=== PATIENT | male | born 1955 | race Two or more races ===

== ENCOUNTER 2019-07-11 19:23 | Inpatient (IN) | payer OTHER ==
[~2019-07-11] VITALS: Ht 180.3 cm; Wt 99.1 kg
[2019-07-11 20:44] LABS: Urine Bacteria NONE SEEN /hpf (None Seen); Urine Blood TRACE /uL (Negative); Urine Mucus FEW (None Seen); Urine Specific Gravity 1.029 (1.001-1.035); Urine WBC 4 /hpf (0 - 3)
[2019-07-11 21:56] LABS: Basophils # (auto) 0.1 uL; Basophils % (auto) 0.5 % (0.0-2.0); Eosinophils # (auto) 0 uL; Eosinophils % (auto) 0.4 % (0.0-7.0); Hematocrit 40.3 % (41.0-53.0); Hemoglobin 14.3 g/dL (13.5-17.5); Lymphocytes # (auto) 0.9 uL; Lymphocytes % (auto) 9.5 % (10.0-50.0); Mean Corpuscular Hemoglobin 32.1 pg (28.0-32.0); Mean Corpuscular Hgb Conc. 35.4 g/dL (32.0-36.0); Mean Corpuscular Volume 90.5 fL (80.0-100.0); Monocytes # (auto) 1.3 uL; Monocytes % (auto) 13.8 % (0.0-12.0); Neutrophils # (auto) 7.3 uL; Neutrophils % (auto) 75.8 % (37.0-80.0); Platelet Count (auto) 213 10^3/uL (140-450); Red Blood Cells 4.46 10^6/uL (4.5-5.90); Red Cell Distribution Width 12.5 % (11.8-14.3); White Blood Cell 9.6 10^3/uL (4.4-10.8)
[2019-07-11 22:16] LABS: Albumin 3.6 g/dL (3.4-5.0); Calcium 9.3 mg/dL (8.5-10.1); Potassium 4.1 mmol/L (3.5-5.1)
[2019-07-11 22:20] LABS: Bilirubin, Total 1.5 mg/dL (0.2-1.0); Total Protein 7.7 g/dL (6.4-8.2)
[2019-07-11] MEDS ORDERED: cefTRIAXone 1GM/50ML D5W 50 ML IV ONE (23:15)
[2019-07-11] MEDS ORDERED: SODIUM CHLORIDE 0.9% 1,000 ML IV ONE (23:15)
[2019-07-11] MEDS ORDERED: metroNIDAZOLE 500MG/100ML 100 ML IV ONE (23:15)
[2019-07-12] MEDS ORDERED: ONDANSETRON HCL 4 MG/2 ML VIAL IV PRN ×2 (00:15→13:30)
[2019-07-12] MEDS: SODIUM CHLORIDE 0.9% 1,000 ML IV SCH ×2 (00:34→09:28)
[2019-07-12 00:50] LABS: INR 1.13 (0.9-1.15); Partial Thromboplastin Time 31.9 sec (23.64-32.05)
--- NOTE | 2019-07-12 01:20 | NUR ---
PT AAOX4, AFEBRILE. NO SOB OR DISTRESS. NO CURRENT C/O PAIN, STATES PAIN IS TOLERABLE 2/10 ON RLQ ABD. PT EDUCATED ON NPO DIET CURRENTLY, PT STATED UNDERSTANDING. SAFETY PRECAUTIONS IN PLACE. WILL CONTINUE TO MONITOR.
[2019-07-12 05:00] VITALS: BP 119/59
[2019-07-12] MEDS: metroNIDAZOLE 500MG/100ML 100 ML IV SCH ×3 (05:22→21:23)
--- NOTE | 2019-07-12 06:05 | NUR ---
PT AROUSABLE BY NAME. NO C/O PAIN AT THIS TIME, STATES PAIN IS FELT WHILE MOVING. POC DISCUSSED, PT STATED UNDERSTANDING, SAFETY PRECAUTIONS IN PLACE. WILL CONTINUE TO MONITOR.
--- NOTE | 2019-07-12 08:10 | NUR ---
Patient is ambulatory to the bathroom.
[2019-07-12] MEDS: cefTRIAXone 1GM/50ML D5W 50 ML IV SCH (08:17)
--- NOTE | 2019-07-12 08:19 | NUR ---
Patient stated he does not take routine medications at home.
[2019-07-12 09:00] VITALS: BP 115/62
[2019-07-12] MEDS: PANTOPRAZOLE 40 MG/10 ML VIAL INJ IV SCH (09:26)
--- NOTE | 2019-07-12 11:04 | NUR ---
Informed Dr. Hernandez the US Abdomen (right upper quadrant) results. Waiting for MD to call back.
--- NOTE | 2019-07-12 11:08 | NUR ---
Dr. Hernandez ordered to keep patient NPO, let the patient sign the consents for laparoscopic possibly open appendectomy, he will do the procedure in an hour. Keep patient NPO.
[2019-07-12 11:46] LABS: Basophils # (auto) 0 uL; Basophils % (auto) 0.4 % (0.0-2.0); Eosinophils # (auto) 0.1 uL; Eosinophils % (auto) 0.8 % (0.0-7.0); Hematocrit 36.4 % (41.0-53.0); Hemoglobin 12.9 g/dL (13.5-17.5); Lymphocytes # (auto) 0.8 uL; Lymphocytes % (auto) 10.1 % (10.0-50.0); Mean Corpuscular Hemoglobin 31.9 pg (28.0-32.0); Mean Corpuscular Hgb Conc. 35.3 g/dL (32.0-36.0); Mean Corpuscular Volume 90.3 fL (80.0-100.0); Monocytes % (auto) 12.9 % (0.0-12.0); Neutrophils # (auto) 6.1 uL; Neutrophils % (auto) 75.8 % (37.0-80.0); Platelet Count (auto) 180 10^3/uL (140-450); Red Blood Cells 4.03 10^6/uL (4.5-5.90); Red Cell Distribution Width 12.5 % (11.8-14.3)
--- NOTE | 2019-07-12 11:50 | NUR ---
Transferred patient via bed to OR/Surgery for Laparoscopic possibly open appendectomy as ordered by Dr. Hernandez. IV line on the right AC intact and patent. Endorsed patient to [employer].
[2019-07-12 12:05] LABS: INR 1.19 (0.9-1.15); Partial Thromboplastin Time 33.5 sec (23.64-32.05)
[2019-07-12 12:11] LABS: Calcium 8.1 mg/dL (8.5-10.1); Potassium 3.8 mmol/L (3.5-5.1)
[2019-07-12 12:14] LABS: BUN/Creatinine Ratio 20.2; Bilirubin, Total 1.2 mg/dL (0.2-1.0); Total Protein 6.7 g/dL (6.4-8.2)
[2019-07-12] MEDS ORDERED: SUCCINYLCHOLINE CHLORIDE 20 MG/ML 10ML VIAL IV ONE (12:42)
[2019-07-12] MEDS ORDERED: MIDAZOLAM HCL 1MG/1ML-2 ML VIAL ONE (13:05)
[2019-07-12] MEDS ORDERED: ROCURONIUM 10MG/ML 10ML VIAL IV ONE (13:05)
[2019-07-12] MEDS ORDERED: LIDOCAINE 1% (LOCAL ANESTH.) PF 5ml SDV ONE (13:07)
[2019-07-12] MEDS ORDERED: PROPOFOL 10 MG/ML 20 ML IV ONE (13:07)
[2019-07-12] MEDS ORDERED: METOCLOPRAMIDE HCL 5MG/ml INJ 2ml VIAL ONE (13:11)
[2019-07-12] MEDS ORDERED: fentaNYL CITRATE 100 MCG/2 ML VL ONE (13:30)
[2019-07-12] MEDS ORDERED: HYDROmorphone HCL 2 MG/ML VL IV PRN ×2 (13:30)
[2019-07-12] MEDS ORDERED: NALOXONE HCL 0.4 MG/ML VIAL IV PRN (13:30)
[2019-07-12] MEDS ORDERED: ePHEDrine SULFATE 50 MG/ML AMP ONE (14:01)
[2019-07-12] MEDS ORDERED: SODIUM CHLORIDE LOCK 10 ML ONE (14:01)
[2019-07-12] MEDS ORDERED: KETOROLAC TROMETH 30 MG/ML 1ML VIAL ONE (14:19)
[2019-07-12] MEDS ORDERED: NEOSTIGMINE 1 MG/ML INJ (10mg/10ML VIAL) ONE (14:25)
[2019-07-12] MEDS ORDERED: GLYCOPYRROLATE 0.2 MG/ML 1ML VIAL ONE (14:25)
[2019-07-12] MEDS ORDERED: POVIDONE IODINE 10 % TOPICAL OINT 30GM TOP ONE (14:25)
--- NOTE | 2019-07-12 15:20 | NUR ---
Keep patient NPO as per OR/Surgery.
--- NOTE | 2019-07-12 15:20 | NUR ---
Patient back to room post op open laparoscopic appendectomy. Patient awake, mildly lethargic. Medial abdomen with surgical dressing with one JENNIFER Bulb draining small amount of serosanguineous fluid. Coughing noted. Will provide Incentive Spirometer. Will hook the SCDs on lower extremities to SCD machine.
--- NOTE | 2019-07-12 15:40 | NUR ---
Lower extremities on SCDs hooked on SCD machine.
--- NOTE | 2019-07-12 15:45 | NUR ---
Zofran Inj given for nausea, Morphine Sulf Inj 2 mg given for stomach pain (post op Lap Appendectomy).
[2019-07-12] MEDS: MORPHINE SULFATE 4 MG/ML SYR/VIAL IV PRN (15:46)
[2019-07-12 17:00] VITALS: BP 119/60
--- NOTE | 2019-07-12 20:00 | NUR ---
Opening Shift Note Assumed care of patient, awake and alert. No S/S of distress/SOB or pain. Instructed on POC and to call for assist PRN, will continue to monitor for changes Q1hr and PRN.Dressing in the abdomen dry and intact,wearing abdominal binder.
[2019-07-12 21:42] VITALS: BP 141/71
--- NOTE | 2019-07-13 00:50 | NUR ---
Called Marie Andre for patient cant urinate enough only 10cc noted in the urinal as patient verbalized having difficulty urinating, relayed s/p lap. open appendectomy, with order to do blader scan if urine is above 200 cc, to insert Gerber cath.,bladder scan done with 366 urine .So tried to insert regular Gerber cath.size 16, but no urine back flow.
[2019-07-13] MEDS: MORPHINE SULFATE 4 MG/ML SYR/VIAL IV PRN ×4 (01:55→21:48)
--- NOTE | 2019-07-13 02:10 | NUR ---
Clarified to Adam Paulino to use coude catheter, and said its davie.
--- NOTE | 2019-07-13 02:20 | NUR ---
Coude Gerber inserted and 900cc urine output drained in the urine bag.
[2019-07-13 05:01] VITALS: BP 130/70
[2019-07-13] MEDS: metroNIDAZOLE 500MG/100ML 100 ML IV SCH ×3 (05:27→21:48)
[2019-07-13] MEDS: SODIUM CHLORIDE 0.9% 1,000 ML IV SCH (06:13)
--- NOTE | 2019-07-13 06:31 | NUR ---
J.p bulb output is 25cc serous sanguinous.
[2019-07-13 06:53] LABS: Basophils # (auto) 0 uL; Basophils % (auto) 0.3 % (0.0-2.0); Eosinophils # (auto) 0 uL; Hemoglobin 12.6 g/dL (13.5-17.5); Lymphocytes # (auto) 0.8 uL; Lymphocytes % (auto) 10.6 % (10.0-50.0); Mean Corpuscular Hemoglobin 31.9 pg (28.0-32.0); Mean Corpuscular Hgb Conc. 35.1 g/dL (32.0-36.0); Mean Corpuscular Volume 90.9 fL (80.0-100.0); Monocytes # (auto) 0.9 uL; Monocytes % (auto) 13.1 % (0.0-12.0); Neutrophils # (auto) 5.4 uL; Platelet Count (auto) 175 10^3/uL (140-450); Red Blood Cells 3.96 10^6/uL (4.5-5.90); Red Cell Distribution Width 12.5 % (11.8-14.3); White Blood Cell 7.1 10^3/uL (4.4-10.8)
--- NOTE | 2019-07-13 07:14 | NUR ---
Care report given to Porfirio Carrillo, patient is resting no distress.
--- NOTE | 2019-07-13 07:30 | NUR ---
Opening Shift Note Assumed care of patient, awake and alert. No S/S of distress/SOB, reports abdominal pain. Instructed on POC and to call for assist PRN, will continue to monitor for changes Q1hr and PRN.
[2019-07-13 09:00] VITALS: BP 130/69
[2019-07-13] MEDS: PANTOPRAZOLE 40 MG/10 ML VIAL INJ IV SCH (10:47)
[2019-07-13] MEDS: D5W/ SOD CHL 0.9%/KCL 20MEQ 1,000 ML IV SCH ×2 (10:47→18:45)
[2019-07-13] MEDS: cefTRIAXone 1GM/50ML D5W 50 ML IV SCH (10:47)
[2019-07-13 17:00] VITALS: BP 130/72
--- NOTE | 2019-07-13 19:20 | NUR ---
Opening Shift Note Report received from day shift RN. Assumed care of patient, awake and A&O x4. No S/S of distress/SOB noted. Patient complains of abdominal pain 12/06. Will medicate as ordered. Dressing to the abdomen C/D/I. JENNIFER drain in place freely draining to suction. Gerber in place, draining to gravity and free of obstructions. Patient is wearing an abdominal binder at this time. Instructed on POC and to call for assist PRN, will continue to monitor for changes Q1hr and PRN.
[2019-07-13 21:16] VITALS: BP 146/79
[2019-07-14] MEDS: D5W/ SOD CHL 0.9%/KCL 20MEQ 1,000 ML IV SCH (04:45)
[2019-07-14 05:02] VITALS: BP 141/78
--- NOTE | 2019-07-14 05:30 | NUR ---
JENNIFER DRAIN 50 ML OF SEROSANGUINEOUS FLUID REMOVED FROM JENNIFER DRAIN
[2019-07-14] MEDS: metroNIDAZOLE 500MG/100ML 100 ML IV SCH ×3 (05:57→22:23)
--- NOTE | 2019-07-14 07:40 | NUR ---
Opening Shift Note Assumed care of patient, awake and alert. No S/S of distress/SOB, reports mild abdomen pain. Instructed on POC and to call for assist PRN, will continue to monitor for changes Q1hr and PRN. Reports passing gas.
[2019-07-14 08:00] VITALS: BP 138/95
[2019-07-14] MEDS: cefTRIAXone 1GM/50ML D5W 50 ML IV SCH (09:21)
[2019-07-14] MEDS: PANTOPRAZOLE 40 MG/10 ML VIAL INJ IV SCH (09:22)
[2019-07-14 12:00] VITALS: BP 104/75
[2019-07-14] MEDS ORDERED: DOCUSATE SOD 100 MG CAP PO PRN (12:00)
[2019-07-14] MEDS ORDERED: HYDROcodone-ACET 10/325MG TAB PO PRN (12:00)
[2019-07-14] MEDS: SODIUM CHLORIDE 0.9% 1,000 ML IV SCH ×3 (12:30→22:23)
[2019-07-14 17:00] VITALS: BP 112/77
[2019-07-14] MEDS ORDERED: TAMSULOSIN HYDROCHLORIDE 0.4 MG CAP PO ONE (20:30)
[2019-07-14 22:00] VITALS: BP 125/64
[2019-07-15 04:50] VITALS: BP 119/74
[2019-07-15 05:30] LABS: Basophils # (auto) 0 uL; Basophils % (auto) 0.4 % (0.0-2.0); Eosinophils # (auto) 0.2 uL; Eosinophils % (auto) 2.2 % (0.0-7.0); Hematocrit 36.5 % (41.0-53.0); Hemoglobin 12.6 g/dL (13.5-17.5); Lymphocytes # (auto) 0.7 uL; Lymphocytes % (auto) 9.7 % (10.0-50.0); Mean Corpuscular Hemoglobin 31.6 pg (28.0-32.0); Mean Corpuscular Hgb Conc. 34.6 g/dL (32.0-36.0); Mean Corpuscular Volume 91.3 fL (80.0-100.0); Monocytes # (auto) 0.7 uL; Monocytes % (auto) 9.4 % (0.0-12.0); Neutrophils # (auto) 5.8 uL; Neutrophils % (auto) 78.3 % (37.0-80.0); Nucleated Red Blood Cells % 0.1 %; Platelet Count (auto) 209 10^3/uL (140-450); Red Cell Distribution Width 12.5 % (11.8-14.3); White Blood Cell 7.4 10^3/uL (4.4-10.8)
[2019-07-15] MEDS: SODIUM CHLORIDE 0.9% 1,000 ML IV SCH (05:45)
[2019-07-15] MEDS: metroNIDAZOLE 500MG/100ML 100 ML IV SCH (05:45)
[2019-07-15 05:49] LABS: Potassium 3.7 mmol/L (3.5-5.1)
[2019-07-15 05:59] LABS: Albumin 2.2 g/dL (3.4-5.0); BUN/Creatinine Ratio 13.3; Bilirubin, Total 0.7 mg/dL (0.2-1.0); Calcium 7.5 mg/dL (8.5-10.1); Magnesium 1.8 mg/dL (1.6-2.6); Phosphorus 1.7 mg/dL (2.5-4.90); Total Protein 5.7 g/dL (6.4-8.2)
[2019-07-15 06:13] LABS: INR 1.4 (0.9-1.15); Partial Thromboplastin Time 34.2 sec (23.64-32.05)
--- NOTE | 2019-07-15 07:30 | NUR ---
Opening Shift Note Assumed care of patient, awake and alert. No S/S of distress/SOB or pain. Instructed on POC and to call for assist PRN, will continue to monitor for changes Q1hr and PRN. Patient is on an air mattress. Patient states he is at "home". Reminded patient that he is in the hospital.
[2019-07-15 09:00] VITALS: BP 119/59
[2019-07-15] MEDS: PANTOPRAZOLE 40 MG/10 ML VIAL INJ IV SCH (09:58)
[2019-07-15] MEDS: cefTRIAXone 1GM/50ML D5W 50 ML IV SCH (09:58)
--- NOTE | 2019-07-15 12:25 | NUR ---
Dr. Monsalve in to see patient as hospitalist. Patient to be discharged.
[2019-07-15 13:00] VITALS: BP 117/80
[2019-07-15 14:23] VITALS: BP 117/80
--- NOTE | 2019-07-15 16:00 | NUR ---
Patient teaching given re emptying JENNIFER drain. Patient encouraged to do his IS at home. Patient informed that he will go home with the gonzalez catheter. Patient states he knows how to care for the gonzalez.
[2019-07-15] MEDS ORDERED: TAMSULOSIN HYDROCHLORIDE 0.4 MG CAP PO SCH (18:00)
[2019-07-15] MEDS ORDERED: TAMS0.4C36 PO ×2 (18:17→18:20)
[2019-07-15] MEDS ORDERED: PANT40TA2 PO ×2 (18:17→18:20)
[2019-07-15] MEDS ORDERED: AMOX500T86 PO ×2 (18:17→18:20)
[2019-07-15] MEDS ORDERED: LACT10SO3 PO ×2 (18:17→18:20)
[2019-07-15] MEDS ORDERED: IBU600T PO ×2 (18:17→18:20)
[2019-07-15] MEDS ORDERED: DOCU-94 PO ×2 (18:17→18:20)
== END 2019-07-15 17:20 | disposition home or self-care (01) | DRG 339 ==
LOC: ER 19:23 → OVERFLOW 19:24 → WEST WING 07-12 01:20
PROVIDERS: ADMIT Nurse Practitioner; ATTEND Internal Medicine
PROC: 0WJG4ZZ Inspection of Peritoneal Cavity, Percutaneous Endoscopic Approach (ICD-10-PCS; 2019-07-12)
PROC: 0DTJ0ZZ Resection of Appendix, Open Approach (ICD-10-PCS; principal; 2019-07-12 13:08)
DX: K35.33 Acute appendicitis with perforation, localized peritonitis, and gangrene, with abscess (principal); N13.8 Other obstructive and reflux uropathy; K57.30 Diverticulosis of large intestine without perforation or abscess without bleeding; N40.0 Benign prostatic hyperplasia without lower urinary tract symptoms; N20.0 Calculus of kidney; N40.1 Benign prostatic hyperplasia with lower urinary tract symptoms; Z87.442 Personal history of urinary calculi; R33.9 Retention of urine, unspecified; Z53.31 Laparoscopic surgical procedure converted to open procedure
CPT/HCPCS: 36415; 71045; 74176; 76705; 80048; 80053; 81001; 83735; 84100; 85025; 85610; 85730; 86850; 86900; 86901; 87070; 87075; 87076; 87205; 96361; 96365; 96375; C9113; G0378; J0330; J0696; J1885; J2250; J2405; J2704; J3490

== ENCOUNTER → 2019-09-13 | Outpatient (CLI) | payer OTHER ==
[~2019-09-13] MED LIST: AMOX500T86 PO; DOCU-94 PO; IBU600T PO; LACT10SO3 PO; PANT40TA2 PO; TAMS0.4C36 PO
[2019-09-13 15:01] LABS: Urine Bacteria FEW /hpf (None Seen); Urine Blood 2+ /uL (Negative); Urine Mucus FEW (None Seen); Urine Specific Gravity 1.024 (1.001-1.035); Urine WBC 523 /hpf (0 - 3); Urine WBC Clumps PRESENT /hpf (None Seen)
== END | disposition home or self-care (01) ==
LOC: LAB 14:39
PROVIDERS: ATTEND Urology
DX: N39.0 Urinary tract infection, site not specified (principal)
CPT/HCPCS: 81001; 87086

== ENCOUNTER → 2019-12-17 | Day surgery (SDC) | payer OTHER ==
[2019-12-12 15:29] LABS: Basophils # (auto) 0 10 ^3/uL (0-0.2); Basophils % (auto) 0.9 % (0.0-2.0); Eosinophils # (auto) 0.1 10 ^3/uL (0-0.8); Eosinophils % (auto) 1.5 % (0.0-7.0); Hematocrit 41.6 % (41.0-53.0); Hemoglobin 14.3 g/dL (13.5-17.5); Lymphocytes # (auto) 1.3 10 ^3/uL (0.4-5.4); Lymphocytes % (auto) 25.8 % (10.0-50.0); Mean Corpuscular Hemoglobin 30.9 pg (28.0-32.0); Mean Corpuscular Hgb Conc. 34.4 g/dL (32.0-36.0); Mean Corpuscular Volume 89.8 fL (80.0-100.0); Monocytes # (auto) 0.6 10 ^3/uL (0-1.3); Monocytes % (auto) 11.3 % (0.0-12.0); Neutrophils % (auto) 60.5 % (37.0-80.0); Platelet Count (auto) 192 10^3/uL (140-450); Red Blood Cells 4.63 10^6/uL (4.5-5.90)
[2019-12-12 15:33] LABS: INR 1.11 (0.9-1.15); Partial Thromboplastin Time 28.4 sec (23.64-32.05)
[2019-12-12 15:36] LABS: Urine Bacteria NONE SEEN /hpf (None Seen); Urine Blood Negative /uL (Negative); Urine Mucus FEW (None Seen); Urine Specific Gravity 1.022 (1.001-1.035); Urine WBC 1 /hpf (0 - 3)
[2019-12-12 15:43] LABS: Albumin 3.8 g/dL (3.4-5.0); BUN/Creatinine Ratio 20.8; Calcium 8.6 mg/dL (8.5-10.1); Potassium 4.2 mmol/L (3.5-5.1)
[2019-12-12 15:46] LABS: Bilirubin, Total 0.7 mg/dL (0.2-1.0); Total Protein 7.2 g/dL (6.4-8.2)
[~2019-12-17] VITALS: Ht 180.3 cm; Wt 74.8 kg
[~2019-12-17] MED LIST changes: -AMOX500T86 PO; +CIPROFLOXACIN 400MG/200ML 200 ML IV ONE; -DOCU-94 PO; +DexAMETHasone SOD PHOS 10MG/1ML VIAL INJ ONE; +FINA5TAB4 PO; +HYDROmorphone HCL 2 MG/ML VL IV PRN; -IBU600T PO; +IOHEXOL 300 MG/ML 100ML BOTTLE IJ ONE; +LABETALOL HCL 5 MG/ML 4ML SYRINGE IV PRN; -LACT10SO3 PO; +MEPERIDINE HCL (25 MG/ML) 1ML VIAL ONE; +MIDAZOLAM HCL 1MG/1ML-2 ML VIAL IV PRN; +MIDAZOLAM HCL 1MG/1ML-2 ML VIAL ONE; +MORPHINE SULFATE 4 MG/ML SYR/VIAL IV PRN; +ONDANSETRON HCL 4 MG/2 ML VIAL IV PRN; -PANT40TA2 PO; +PROPOFOL 10 MG/ML 20 ML IV ONE; +ePHEDrine SULFATE 50 MG/ML AMP IV PRN; +fentaNYL CITRATE 100 MCG/2 ML VL ONE
[2019-12-17 10:00] VITALS: BP 134/63
== END | disposition home or self-care (01) ==
LOC: SUR 06:21
PROVIDERS: ATTEND Urology
DX: N20.0 Calculus of kidney (principal); I10 Essential (primary) hypertension; I49.9 Cardiac arrhythmia, unspecified; Z98.890 Other specified postprocedural states; Z79.899 Other long term (current) drug therapy; Z11.59 Encounter for screening for other viral diseases
CPT/HCPCS: 36415; 50590; 80053; 81001; 85025; 85610; 85730; J0744; J1100; J2175; J2250; J2704; J3010; U0003

== ENCOUNTER → 2020-01-10 | Outpatient (CLI) | payer OTHER ==
[~2020-01-10] MED LIST changes: -CIPROFLOXACIN 400MG/200ML 200 ML IV ONE; -DexAMETHasone SOD PHOS 10MG/1ML VIAL INJ ONE; -HYDROmorphone HCL 2 MG/ML VL IV PRN; -IOHEXOL 300 MG/ML 100ML BOTTLE IJ ONE; -LABETALOL HCL 5 MG/ML 4ML SYRINGE IV PRN; -MEPERIDINE HCL (25 MG/ML) 1ML VIAL ONE; -MIDAZOLAM HCL 1MG/1ML-2 ML VIAL IV PRN; -MIDAZOLAM HCL 1MG/1ML-2 ML VIAL ONE; -MORPHINE SULFATE 4 MG/ML SYR/VIAL IV PRN; -ONDANSETRON HCL 4 MG/2 ML VIAL IV PRN; -PROPOFOL 10 MG/ML 20 ML IV ONE; -ePHEDrine SULFATE 50 MG/ML AMP IV PRN; -fentaNYL CITRATE 100 MCG/2 ML VL ONE
== END | disposition home or self-care (01) ==
LOC: LAB 16:47
PROVIDERS: ATTEND Urology
DX: N20.0 Calculus of kidney (principal)
CPT/HCPCS: 82360

== ENCOUNTER 2024-06-28 09:43 | Emergency (ER) | payer OTHER ==
[~2024-06-28] VITALS: Ht 182.9 cm; Wt 78.2 kg
[~2024-06-28 09:43] MED LIST changes: -TAMS0.4C36 PO; +TAMS0.4C39 PO
[2024-06-28 10:07] VITALS: BP 138/69; PULSE 69; RESP 18; TEMP 97.5; O2SAT 95
--- NOTE | 2024-06-28 10:27 | ED.PDOC ---
HPI Comments A 68 YEAR OLD MALE PRESENTS TO THE ED WITH COMPLAINT OF LACERATION OF LEFT CHEEK AND LEFT EYEBROW STATUS POST FALL. PATIENT STATES HE WAS WALKING HIS DOG EARLIER TODAY AND HE ACCIDENTALLY FELL WHEN HIS DOG PULLED ON THE LEASH CAUSING HIM TO HIT THE LEFT SIDE OF HIS FACE ON THE GROUND. PATIENT REPORTS HE SUSTAINED A LACERATION ON HIS LEFT CHEEK AND LEFT EYEBROW. BLEEDING IS CONTROLLED AT THIS TIME. PATIENT DENIES HEAD INJURY, NECK INJURY, LOC, FEVER, CHILLS, SHORTNESS OF BREATH, CHEST PAIN, ABDOMINAL PAIN, NAUSEA, VOMITING, HEADACHE, OR OTHER COMPLAINTS. NO OTHER SYMPTOMS OR MODIFYING FACTORS AT THIS TIME. PATIENT IS ALERT, ORIENTED X 4, AND HAS STEADY GAIT. Chief Complaint: Laceration Time Seen by MD: 09:55 Reviewed Notes: Nurses Notes, Medications, Allergies Allergies: Coded Allergies: NO KNOWN ALLERGIES (Unverified , 12/12/19) Home Meds Active Scripts Cephalexin Monohydrate (Cephalexin) 500 Mg Cap, 1 CAP PO QID, #28 CAP Prov:NINO BUTCHER 06/28/24 Tamsulosin Hcl (Tamsulosin Hcl) 0.4 Mg Cap, 1 CAP PO DAILY, #30 CAP 5 Refills Prov:JER RODRIGUEZ MD 07/15/19 Reported Medications Finasteride (Finasteride) 5 Mg Tab, 5 MG PO DAILY for 30 Days, MG 12/12/19 Information Source: Patient Mode of Arrival: Ambulatory Severity: Moderate Severity of Laceration: Deformity Complexity: Simple Timing: Hours Prehospital treatment: None Laceration Location: Face (LEFT CHEEK) Mechanism: Fall Last Tetanus: Unknown Laceration Length (cm): 8 Skin Type: Linear Depth of Injury: SQ Tendon Injury: 0% Capillary Refill: < 3 seconds Tender: Mild Discharge: None Erythema: None Associated Signs and Symptoms: None Past Medical History PAST MEDICAL HISTORY: Kidney Stones Surgical History: Hernia Repair Family History Family History: Reviewed,noncontributory to illness Social History Smoker: Non-Smoker Alcohol: Rarely Drugs: Denies Drug Use Lives In: Home Constitutional: denies: chills, diaphoresis, fatigue, fever, malaise, sweats, weakness, others EENTM: reports: others (LACERATION LEFT EYEBROW AND LEFT CHEEK ); denies: blurred vision, double vision, ear bleeding, ear discharge, ear drainage, ear pain, ear ringing, eye pain, eye redness, hearing loss, mouth pain, mouth swelling, nasal discharge, nose bleeding, nose congestion, nose pain, photophobia, tearing, throat pain, throat swelling, voice changes Respiratory: denies: cough, hemoptysis, orthopnea, SOB at rest, shortness of breath, SOB with excertion, stridor, wheezing, others Cardiovascular: denies: chest pain, dizzy spells, diaphoresis, Dyspnea on exertion, edema, irregular heart beat, left arm pain, lightheadedness, palpitations, PND, syncope, others Gastrointestinal: denies: abdomen distended, abdominal pain, blood streaked bowels, constipated, diarrhea, dysphagia, difficulty swallowing, hematemesis, melena, nausea, poor appetite, poor fluid intake, rectal bleeding, rectal pain, vomiting, others Genitourinary: denies: burning, dysuria, flank pain, frequency, hematuria, incontinence, penile discharge, penile sore, pain, testicle pain, testicle swelling, urgency, others Neurological: denies: dizziness, fainting, headache, left sided numbness, left sided weakness, numbness, paresthesia, pre-existing deficit, right sided numbness, right sided weakness, seizure, speech problems, tingling, tremors, weakness, others Musculoskeletal: denies: back pain, gout, joint pain, joint swelling, muscle pain, muscle stiffness, neck pain, others Integumetry: reports: laceration (LACERATION OF LEFT CHEEK AND LEFT EYEBROW); denies: bruises, change in color, change in hair/nails, dryness, lesions, lumps, rash, wounds, others Allergic/Immunocompromised: denies: Difficulty Healing, Frequent Infections, Hives, Itching, others Hematologic/Lymphatic: denies: anemia, blood clots, easy bleeding, easy bruising, swollen glands, others Endocrine: denies: excessive hunger, excessive sweating, excessive thirst, excessive urination, flushing, intolerance to cold, intolerance to heat, unexplained weight gain, unexplained weight loss, others Psychiatric: denies: anxiety, bipolar disorder, depression, hopeless, panic disorder, schizophrenia, sleepless, suicidal, others All Other Systems: Reviewed and Negative Physical Exam General Appearance: No Apparent Distress, Normal HEENT: Normal ENT Inspection, PERRL/EOMI, Pharynx Normal, TMs Normal, Other (LACERATION OF LEFT EYEBROW AND LEFT CHEEK, NO BONY TENDERNESS, SWELLING AND DEFORMITY. ) Neck: Full Range of Motion, Non-Tender, Normal, Normal Inspection Respiratory: Chest Non-Tender, Lungs Clear, No Accessory Muscle Use, No Respiratory Distress, Normal Breath Sounds Cardiovascular: No Edema, No JVD, No Murmur, No Gallop, Normal Peripheral Pulses, Regular Rate/Rhythm Breast Exam: Deferred Gastrointestinal: No Organomegaly, Non Tender, No Pulsatile Mass, Normal Bowel Sounds, Soft Genitalia: Deferred Pelvic: Deferred Rectal: Deferred Extremities: No calf tenderness, Normal capillary refill, Normal inspection, Normal range of motion, Non-tender, No pedal edema Musculoskeletal : Apperance: Normal Neurologic: Alert, top knitter II-XII nml as Tested, No Motor Deficits, Normal Affect, Normal Mood, No Sensory Deficits Cerebellar Function: Normal Reflexes: Normal Skin: Dry, Lacerations (4CM LACERATION ON LEFT EYEBROW, NO BONY TENDERNESS, SWELLING AND DEFORMITY. 4CM LACERATION ON LEFT UPPER CHEEK, NO BLEEDING, SWELLING AND DEFORMITY. ), Normal Color, Warm, Wounds (ABRASION WOUNDS ON LEFT DORSAL HAND, NO BONY TENDERNESS, SWELLING AND DEFORMITY. ) Peripheral Pulses: 2+ carotid (R), 2+ carotid (L), 2+ Radial (R), 2+ Radial (L) Lymphatic: No Adenopathy Was a procedure done? Was a procedure done?: Yes Sedation Sedation?: No Laceration Repair : Location LEFT CHEEK AND LEFT EYEBROW Length 8CM Anesthetic: Lidocaine, Without epi Laceration Repair Prep: Saline, by Irrigation Laceration Repair Wound Comple: epidermis/dermis repair Laceration Repair: Number of sutures (16), SQ, Size (5-0 ETHILON), Nylon, Simple, Bacitracin, Gauze Informed consent obtained: No Risks, benefits, and alternati: Yes Images 1 - 2 - Differential diagnosis Generic Laceration: Abrasion/Contusion, Laceration, Avulsion Differential Diagnosis: N/A X-Ray, Labs, Meds, VS Vital Signs Date Time Temp Pulse Resp B/P (MAP) Pulse Ox O2 Delivery O2 Flow Rate FiO2 06/28/24 10:07 97.5 69 18 138/69 (92) 95 97.5 06/28/24 10:07 69 18 95 Room Air X-Ray, Labs, Meds, VS Comment EXTERNAL MEDICAL RECORDS REVIEWED: [NONE] INDEPENDENT HISTORIANS: [NONE] SOCIAL DETERMINANTS OF HEALTH: [NONE] LABS ORDERED: NONE REVIEWED AND INTERPRETED RESULTS: NONE IMAGING ORDERED: NONE TREATMENTS ORDERED: LACERATION REPAIR. PROCEDURES PERFORMED: LACERATION REPAIR, SEE PROCEDURE SECTION. CRITICAL CARE TIME: NONE I HAVE DISCUSSED THE PATIENT WITH THE ATTENDING PHYSICIAN DR. FRANCE AND HE AGREES WITH THE PATIENT'S PLAN OF CARE AND DISPOSITION. BASED ON HISTORY OF PRESENT ILLNESS, AND PHYSICAL EXAM, PATIENT WILL BE DISCHARGED HOME. DISCUSSED PLAN FOR DISCHARGE HOME WITH RX [KEFLEX]. MEDICATION WARNINGS GIVEN. SHARED DECISION MAKING: PATIENT INSTRUCTED TO FOLLOW UP WITH PRIMARY CARE PROVIDER IN 1-2 DAYS FOR RE-EVALUATION OF SYMPTOMS. PATIENT VERBALIZES UNDERSTANDING TO RETURN TO ED FOR NEW OR WORSENING SYMPTOMS OR IF FOLLOW UP WITH PCP CANNOT BE OBTAINED. PATIENT FEELS COMFORTABLE GOING HOME AT THIS TIME. ALL QUESTIONS ADDRESSED AT TIME OF DISCHARGE. Images Reviewed?: Images reviewed and evaluated by me Time of 1ST Reevaluation: 11:10 Reevaluation 1ST: Improved Patient Education/Counseling: Diagnosis, Treatment, Need For Follow Up Family Education/Counseling: Diagnosis, Treatment, Need For Follow Up Medical Screening: No EMC Exist At This Time Departure 1 Departure Time of Disposition: 11:10 Impression: Primary Impression: Laceration of left cheek Qualified Codes: S01.412A - Laceration without foreign body of left cheek and temporomandibular area, initial encounter Additional Impressions: Laceration of left eyebrow Qualified Codes: S01.112A - Laceration without foreign body of left eyelid and periocular area, initial encounter Status post fall Disposition: 01 HOME / SELF CARE / HOMELESS Condition: Stable Additional Instructions: FOLLOW-UP WITH PCP IN 1 TO 2 DAYS. TAKE MEDICATIONS PRESCRIBED. RETURN TO ED FOR ANY NEW OR WORSENING SYMPTOMS. e-Prescriptions Cephalexin Monohydrate (Cephalexin) 500 Mg Cap 1 CAP PO QID, #28 CAP Prov: NINO BUTCHER 06/28/24 Discharged With: Self Critical Care Note Critical Care Time?: No Stability Stability form required: No I personally scribed for NINO BUTCHER ([email or web address]) on 06/28/24 at 10:27. Electronically submitted by Ramin Badillo ([email or web address]). I personally scribed for NINO BUTCHER ([email or web address]) on 06/28/24 at 10:39. Electronically submitted by Ramin Badillo ([email or web address]). I personally scribed for NINO BUTCHER ([email or web address]) on 06/28/24 at 10:54. Electronically submitted by Ramin Badillo (HERO). NINO BUTCHER Jun 28, 2024 10:27
[2024-06-28] MEDS ORDERED: CEPH500C PO (10:53)
== END 2024-06-28 11:09 | disposition home or self-care (01) ==
LOC: ER 09:43
DX: S01.412A Laceration without foreign body of left cheek and temporomandibular area, initial encounter (principal); S01.112A Laceration without foreign body of left eyelid and periocular area, initial encounter; Z98.890 Other specified postprocedural states; Z79.899 Other long term (current) drug therapy; W18.39XA Other fall on same level, initial encounter; Y93.K1 Activity, walking an animal; Y92.89 Other specified places as the place of occurrence of the external cause; Y99.8 Other external cause status
CPT/HCPCS: 12015; 99283; J2003